=== PATIENT | male | born 1985 | race Caucasian/White ===

== ENCOUNTER 2021-09-21 23:43 | Emergency (ER) | payer OTHER, SELFPAY ==
[2021-09-21 23:44] VITALS: BP 119/81; PULSE 100; RESP 16; TEMP 36.7; O2SAT 98
--- NOTE | 2021-09-22 00:34 | ED.GENADULT ---
HPI - General Adult General Chief complaint: Wound/Laceration Stated complaint: SCALP LAC BEHIND R EAR Time Seen by Provider: 09/22/21 00:23 History of Present Illness HPI narrative: Patient is a 36-year-old male here for evaluation of an injury behind his right ear sustained from a hockey puck during a game about 1 hour prior to arrival. Denies loss of consciousness, amnesia to the event. No headaches, visual changes, confusion. Last tetanus shot 2 weeks ago. No blood thinner use. Related Data Home Medications Medication Instructions Recorded Confirmed eluxadoline 75 mg tablet mg PO 01/02/19 Allergies Allergy/AdvReac Type Severity Reaction Status Date / Time amoxicillin Allergy Unknown Other Verified 12/22/18 13:53 cefaclor Allergy Unknown Vomiting Verified 12/22/18 13:53 Penicillins Allergy Unknown Verified 12/22/18 13:53 Review of Systems Review of Systems: Gen: Denies fevers or chills Eyes: Denies eye pain or visual change ENT: Denies congestion Respiratory: Denies shortness of breath or cough CV: Denies chest pain or palpitations GI: Reports abdominal pain nausea, emesis or diarrhea denies burning, urgency, frequency or hematuria Musculoskeletal: Denies back pain or muscle pain Neuro: Denies numbness, tingling, weakness or focal weakness Skin: reports laceration behind right ear 10 point review of systems negative, other than as per history of present illness, past medical history and other positives and review of systems [facility] Past Medical History Medical History IBS (irritable bowel syndrome) Family History Family History (System 12/22/18 @ 13:53 by Mirna Spencer) Other Diabetes mellitus Family history of malignant neoplasm Family history of malignant neoplasm of breast Family history of malignant neoplasm of kidney Exam Narrative: Gen: Alert, oriented, no acute distress Eyes: EOMI, no icterus Pulm: Respirations even and unlabored, symmetric thorax expansion, no audible stridor or visible cyanosis TM: No hemotympanum CV: Regular rate per telemetry GI: No distension, no voluntary/involuntary guarding Neuro: CN II-XII intact. AOx4, moves all extremities without apparent difficulty or weakness, follows commands Skin: Patient has 1.5 cm linear superficial laceration over the right mastoid process with no active bleeding. Psych: Normal mood/affect, insight/judgement good, adequate fund of knowledge, recent/remote memory intact Course Vital Signs Vital signs: Vital Signs Temperature 98.1 F 09/21/21 23:44 Pulse Rate 100 09/21/21 23:44 Respiratory Rate 16 09/21/21 23:44 Blood Pressure 119/81 09/21/21 23:44 Pulse Oximetry 98 09/21/21 23:44 Oxygen Delivery Room Air 09/21/21 23:44 Temperature 98.1 F 09/21/21 23:44 Pulse Rate 89 09/22/21 02:15 Respiratory Rate 18 09/22/21 02:15 Blood Pressure 119/81 09/21/21 23:44 Pulse Oximetry 98 09/22/21 02:15 Oxygen Delivery Room Air 09/21/21 23:44 Procedures Laceration Laceration 1: Date: 09/22/21 Time: 01:56 Site: other (r mastoid process) Size (cm): 1.5 Description: linear and clean Depth: simple, single layer Local Anesthetic: lidocaine 1% and with epi Amount of anesthesia used (mL): 2 Pre-repair: wound explored, irrigated and irrigated extensively ====== Skin Level ====== Skin layer closed with: other (ethilon) Size (cm): 4-0 Number of sutures: 3 Technique: simple, interrupted ====== Subcutaneous Layer ====== ====== Muscle Layer ====== ====== Tendon Layer ====== Medical Decision Making [facility] Narrative Medical decision making narrative: 36-year-old male here for evaluation of a laceration behind his right ear sustained from a hockey puck; no LOC. Here, he is nontoxic-appearing, his vital signs are normal, he is asymptomatic
[2021-09-22 02:15] VITALS: PULSE 89; RESP 18; O2SAT 98
== END 2021-09-22 02:17 | disposition home or self-care (01) ==
PROVIDERS: Emergency Provider Emergency Medicine; PCP Family Medicine
DX: S01.81XA Laceration without foreign body of other part of head, initial encounter (principal); K58.9 Irritable bowel syndrome, unspecified; W21.220A Struck by ice hockey puck, initial encounter; Y93.22 Activity, ice hockey
CPT/HCPCS: 12001; 12011; 99282